=== PATIENT | male | born 1975 | race Caucasian/White ===

== ENCOUNTER 2021-11-18 13:46 | Emergency (ER) | payer MEDICARE, MEDICAID ==
[~2021-11-18] VITALS: Ht 175.3 cm; Wt 97.7 kg
[~2021-11-18 13:46] MED LIST: ZOF4T PO
[2021-11-18 13:56] VITALS: BP 135/82
== END 2021-11-18 18:48 | disposition left against medical advice (07) ==
LOC: ER 13:46
DX: R51.9 Headache, unspecified (principal); Z53.21 Procedure and treatment not carried out due to patient leaving prior to being seen by health care provider